=== PATIENT | male | born 1995 | race Caucasian/White ===

== ENCOUNTER 2019-12-29 20:49 | Emergency (ER) | payer OTHER, MEDICAID, SELFPAY ==
[2019-12-29 20:56] VITALS: BP 121/59; PULSE 156; RESP 18; TEMP 36.2; O2SAT 96; BMI 22.6
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
[2019-12-29] MEDS: OLANZapine ODT 10 MG TAB 20 MG PO (21:00)
--- NOTE | 2019-12-29 21:05 | PC.NURSE ---
Pt at doorway, discussing with police can we all just move forward now, and attempting to exit room 13. Pressured speech. Pt initially agreeable with Dr Fulton to take oral meds for symptom relief; pt took ODT Zyprexa, then spat it on the floor. Dr Fulton notified; plan now to give meds IM, door closed for safety.
[2019-12-29] MEDS: HALOPERIDOL 5 MG/ML VIAL IM (21:11)
[2019-12-29] MEDS: LORazepam 2 MG/ML INJ IM (21:11)
[2019-12-29] MEDS: diphenhydrAMINE 50 MG/ML VIAL IM (21:11)
--- NOTE | 2019-12-29 21:26 | PC.NURSE ---
during triage patient had difficulty tracking and answering questions. Patient would go off on tangents with racing thoughts, pressured speech and delusions.
--- NOTE | 2019-12-29 21:45 | PC.NURSE ---
Pt now sedate, changed into hospital attire and labs drawn by phlebo. Door open. Frequent checks.
[2019-12-29 21:57] LABS: Add Manual Diff / Slide Review NO; Basophils Absolute Auto 100 /uL (0-100); Eosinophils Absolute Auto 300 /uL (0-450); Eosinophils Percent Auto 4.6 % (2-4); Hemoglobin 15.2 g/dL (13.5-17.5); Lymphocytes Absolute Auto 1900 /uL (1100-4500); Lymphocytes Percent Auto 27.7 % (25-40); Mean Corpuscular HGB Conc 34.6 % (30-36); Mean Corpuscular Hemoglobin 30.8 PG (26-34); Mean Corpuscular Volume 89.2 fL (80-100); Monocytes Absolute Auto 400 /uL (0-900); Monocytes Percent Auto 5.8 % (3-14); Neutrophils Absolute Auto 4000 /uL (1500-7000); Neutrophils Percent Auto 59.9 % (50-75); Platelet Count 243 X10^3/uL (150-400); Red Blood Cell Count 4.94 X10^6/uL (4.5-5.9); Red Cell Distribution Width 12.6 % (11.6-14.8); White Blood Cell Count 6.7 X10^3/uL (4.5-11.0)
[2019-12-29 22:03] LABS: Alanine Aminotransferase 49 IU/L (<50); Albumin 4.7 g/dL (3.5-5.0); Albumin Globulin Ratio 1.6 (1.0-2.8); Alkaline Phosphatase 62 U/L (38-126); Aspartate Aminotransferase 30 IU/L (17-59); BUN Creatinine Ratio 16.8 (6-22); Bilirubin Total 2.3 mg/dL (0.2-1.3); Blood Urea Nitrogen 19 mg/dL (9-20); Calcium 9.6 mg/dL (8.4-10.2); Carbon Dioxide 24 mmol/L (22-32); Chloride 103 mmol/L (98-107); Estimated Glomerular Filt Rate > 60.0 mL/min (>60); Ethanol (ETOH) < 10 mg/dL; Glucose 197 mg/dL (70-100); HEMOLYSIS < 15 (0-50); Potassium 3.5 mmol/L (3.4-5.1); Sodium 138 mmol/L (137-145); Total Protein 7.7 g/dL (6.3-8.2)
[2019-12-29 22:24] VITALS: PULSE 104; RESP 18; O2SAT 98
[2019-12-29 22:27] LABS: COVID19 -Nasal RAPID Negative (Negative)
[2019-12-29 22:40] LABS: Thyroid Stimulating Hormone 1.76 uIU/mL (0.47-4.68)
[2019-12-30 00:11] VITALS: PULSE 108; RESP 20; O2SAT 96
[2019-12-30 01:08] VITALS: PULSE 103; RESP 16; O2SAT 97
[2019-12-30 03:36] VITALS: BP 106/56; PULSE 87; RESP 16; TEMP 36.6; O2SAT 94
--- NOTE | 2019-12-30 06:58 | PC.NURSE ---
Attempted to rouse pt to assist to void; pt responsive but too sleepy.
--- NOTE | 2019-12-30 07:17 | PC.NURSE ---
Addendum entered by Mary Wetzel CNA 12/30/19 07:25: Resp. 15 and normal Original Note: This [employer] POL[employer] CAPTAIN is taking over for 1:1 observation. Patient is quiet and laying down sleeping.
[2019-12-30 07:36] VITALS: BP 89/55; PULSE 66; RESP 15; TEMP 36.4; O2SAT 100
--- NOTE | 2019-12-30 07:50 | PC.NURSE ---
Addendum entered by Mary Wetzel CNA 12/30/19 07:59: Doctor was able to wake patient more. He is now sitting up and eating his breakfast. Original Note: I attempted to wake patient with breakfast and ask if he could eat but he did not respond verbally, he shook his head and kept his eyes closed. will re-attempt again when patient is able to wake up more.
[2019-12-30 08:09] VITALS: BP 105/62; PULSE 72; RESP 16; O2SAT 100
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
--- NOTE | 2019-12-30 08:53 | PC.NURSE ---
Spoke w/ [place] [employer]. GUIDE TRAVEL to see pt.
[2019-12-30 09:06] LABS: UR Morphine/Opiate cutoff 300 Negative (Negative); Ur Creatinine Normal (Normal); Ur Specific Gravity Normal (Normal); Urine Amphetamines Negative (Negative); Urine Barbiturates Negative (Negative); Urine Benzodiazepines Negative (Negative); Urine Cocaine Negative (Negative); Urine MDMA Negative (Negative); Urine Methadone Negative (Negative); Urine Methamphetamines Negative (Negative); Urine Oxycodone Negative (Negative); Urine Phencyclidine Negative (Negative); Urine Tetrahydrocannabinol Negative (Negative); Urine Tricyclic Antidepressant Negative (Negative); Urine pH Normal (Normal)
--- NOTE | 2019-12-30 10:31 | PC.NURSE ---
Pt is sitting up in chair talking with social services counselorMei right now.
--- NOTE | 2019-12-30 12:42 | PC.NURSE ---
Pt has been calm and quiet on stretcher in the romm
--- NOTE | 2019-12-30 12:43 | PC.NURSE ---
Pt has been calm and quiet on stretcher in the room. He is able to vocalize his needs. He changed into his clothes and ate his lunch in anticipation of his sister coming to pick him up.
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
== END 2019-12-30 13:10 | disposition home or self-care (01) ==
PROVIDERS: Emergency Medicine; Emergency Provider Emergency Medicine
DX: F15.10 Other stimulant abuse, uncomplicated (principal); R45.1 Restlessness and agitation; Z11.59 Encounter for screening for other viral diseases
CPT/HCPCS: 36415; 80053; 80305; 80320; 81003; 84443; 85025; 87635; 96372; 99285; J1200; J1630; J2060